=== PATIENT | female | born 1950 | race Caucasian/White ===

== ENCOUNTER 2016-09-26 11:04 | Inpatient (IN) | payer MEDICARE, BC ==
--- NOTE | 2016-09-26 11:37 | ER Document Report ---
ED Medical Screen (RME) - General Mode of Arrival: Ambulatory Information source: Patient TRAVEL OUTSIDE OF THE U.S. IN LAST 30 DAYS: No - HPI Patient complains to provider of: Dark stool Onset: Other - Last night Associated Symptoms: Other - see notes above <SACHA DELEON - Last Filed: 09/26/16 11:51> <EMANUELCHARO BUSH MELANIE - Last Filed: 09/26/16 12:47> - General Chief Complaint: Bloody Stools Stated Complaint: POSSIBLE BLOOD IN STOOL Time Seen by Provider: 09/26/16 11:36 Notes: 65-year-old female with history of cholecystectomy and gastric bypass surgery presents to the ED complaining of passing dark stool last night this morning. Patient reports that she had a GI bleed secondary to an ulcer or diverticulosis on July 11, 2016. Patient called her surgeon's office this morning and was told to come to the ED for evaluation. Patient denies lightheadedness or abdominal pain. Patient is currently taking Protonix. I have greeted and performed a rapid initial assessment of this patient. A comprehensive ED assessment and evaluation of the patient, analysis of test results and completion of the medical decision making process will be conducted by additional ED providers. (SACHA DELEON) - Related Data Allergies/Adverse Reactions: codeine with Tylenol Allergy (Uncoded 09/26/16 11:18) Past Medical History - General Information source: Patient - Social History Chew tobacco use (# tins/day): No Frequency of alcohol use: None Drug Abuse: None Family history: Reviewed & Not Pertinent Renal/ Medical History: Denies: Hx Peritoneal Dialysis Past Surgical History: Reports: Hx Abdominal Surgery - gastric bypass, Hx Cholecystectomy, Hx Gastric Bypass Surgery, Hx Orthopedic Surgery - knee, carlin hands <SACHA DELEON - Last Filed: 09/26/16 11:51> Review of Systems - Review of Systems Constitutional: No symptoms reported EENT: No symptoms reported Cardiovascular: No symptoms reported. denies: Lightheaded Respiratory: No symptoms reported Gastrointestinal: See HPI, Black stools. denies: Abdominal pain Genitourinary: No symptoms reported Female Genitourinary: No symptoms reported Musculoskeletal: No symptoms reported Skin: No symptoms reported Hematologic/Lymphatic: No symptoms reported Neurological/Psychological: No symptoms reported -: Yes All other systems reviewed and negative <SACHA DELEON - Last Filed: 09/26/16 11:51> Physical Exam - General General appearance: Alert In distress: None - HEENT Head: Normocephalic, Atraumatic Eyes: Normal Extraocular movements intact: Yes Pupils: PERRL - Respiratory Respiratory status: No respiratory distress - Abdominal Inspection: Normal <SACHA DELEON - Last Filed: 09/26/16 11:51> Course <SACHA DELEON - Last Filed: 09/26/16 11:51> - Laboratory Result Diagrams: 09/26/16 12:18 09/26/16 12:18 <CHARO ALCALA - Last Filed: 09/26/16 12:47> - Re-evaluation Re-evalutation: 09/26/16 12:46 I personally performed the services described in the documentation, reviewed and edited the documentation which was dictated to the scribe in my presence, and it accurately records my words and actions. (CHARO ALCALA) - Vital Signs Vital signs: Temp Pulse Resp BP Pulse Ox 98.6 F 94 16 115/62 99 09/26/16 12:33 09/26/16 12:33 09/26/16 12:33 09/26/16 12:33 09/26/16 12:33 - Laboratory Laboratory results interpreted by me: 09/26/16 09/26/16 11:46 12:18 RDW 15.3 H Ur Leukocyte Esterase SMALL H Urine Ascorbic Acid 40 H Scribe Documentation - Scribe Written by Scribe:: Sebas Valenzuela, 09/26/2016 [id number] acting as scribe for :: Kylie <SACHA DELEON - Last Filed: 09/26/16 11:51>
[2016-09-26 12:31] LABS: ABSOLUTE BASOPHILS # (AUTO) 0.1 10^3/uL (0.0-0.2); ABSOLUTE EOSINOPHILS # (AUTO) 0.1 10^3/uL (0.0-0.6); ABSOLUTE LYMPHOCYTES (AUTO) 2.5 10^3/uL (0.5-4.7); ABSOLUTE NEUT (AUTO) 6.7 10^3/uL (1.7-8.2); BASOPHILS % (AUTO) 0.5 % (0-2); EOSINOPHILS % (AUTO) 0.9 % (0-6); HEMATOCRIT 39.3 % (36.0-47.0); HEMOGLOBIN 12.8 g/dL (12.0-15.5); HGB HCT DIFFERENCE -0.9; LYMPHOCYTES % (AUTO) 24.3 % (13-45); MEAN CORPUSCULAR HEMOGLOBIN 27.9 pg (27.0-33.4); MEAN CORPUSCULAR HGB CONC 32.5 g/dL (32.0-36.0); MEAN CORPUSCULAR VOLUME 86 fl (80-97); MONOCYTES % (AUTO) 9.6 % (3-13); RED BLOOD COUNT 4.58 10^6/uL (3.72-5.28); RED CELL DISTRIBUTION WIDTH 15.3 % (11.5-14.0); SEGMENTED NEUTROPHILS % (AUTO) 64.7 % (42-78); WHITE BLOOD COUNT 10.4 10^3/uL (4.0-10.5)
[2016-09-26 12:37] LABS: APPEARANCE,URINE SLIGHTLY-CLOUDY; BILIRUBIN,URINE NEGATIVE (NEGATIVE); GLUCOSE, URINE NEGATIVE (NEGATIVE); KETONES,URINE NEGATIVE (NEGATIVE); LEUKOCYTE ESTERASE,URINE SMALL (NEGATIVE); NITRITE,URINE NEGATIVE (NEGATIVE); PROTEIN,URINE NEGATIVE (NEGATIVE); URINE SPECIFIC GRAVITY 1.018; UROBILINOGEN,URINE NEGATIVE mg/dL (<2.0)
[2016-09-26 12:53] LABS: ALANINE AMINOTRANSFERASE 27 U/L (9-52); ALBUMIN 4.4 g/dL (3.5-5.0); ALKALINE PHOSPHATASE 86 U/L (38-126); ANION GAP 12 (5-19); ASPARTATE AMINO TRANSFERASE 21 U/L (14-36); BILIRUBIN,DIRECT 0.2 mg/dL (0.0-0.4); BILIRUBIN,TOTAL 0.3 mg/dL (0.2-1.3); BLOOD UREA NITROGEN 32 mg/dL (7-20); CALCIUM 9.6 mg/dL (8.4-10.2); CARBON DIOXIDE 25 mmol/L (22-30); CHLORIDE 105 mmol/L (98-107); CREATININE RESULT 0.64 mg/dL (0.52-1.25); GLUCOSE 93 mg/dL (75-110); POTASSIUM 5.4 mmol/L (3.6-5.0); SODIUM 141.6 mmol/L (137-145)
--- NOTE | 2016-09-26 13:42 | ER Document Report ---
ED GI Bleed / Rectal Pain - General Mode of Arrival: Ambulatory TRAVEL OUTSIDE OF THE [place].S. IN LAST 30 DAYS: No - HPI Patient complains to provider of: Dark/tarry stools Onset: Other - last night and this morning Dark Stools: Black Associated symptoms: Other - see notes above <SACHA DELEON - Last Filed: 09/26/16 15:50> <CHARO ALCALA - Last Filed: 09/26/16 19:04> - General Chief Complaint: Bloody Stools Stated Complaint: POSSIBLE BLOOD IN STOOL Time Seen by Provider: 09/26/16 11:36 Notes: 65-year-old female with history of cholecystectomy and gastric bypass surgery presents to the ED complaining of passing dark stool last night this morning. Patient reports that she had a GI bleed secondary to an ulcer or diverticulosis on July 11, 2016. Patient called her surgeon's office this morning and was told to come to the ED for evaluation. Patient denies lightheadedness or abdominal pain. Patient is currently taking Protonix. (SACHA DELEON) - Related Data Allergies/Adverse Reactions: codeine with Tylenol Allergy (Uncoded 09/26/16 11:18) Past Medical History - General Information source: Patient - Social History Smoking Status: Never Smoker Chew tobacco use (# tins/day): No Frequency of alcohol use: None Drug Abuse: None Family History: Reviewed & Not Pertinent Patient has suicidal ideation: No Patient has homicidal ideation: No Renal/ Medical History: Denies: Hx Peritoneal Dialysis Past Surgical History: Reports: Hx Abdominal Surgery - gastric bypass, Hx Cholecystectomy, Hx Gastric Bypass Surgery, Hx Orthopedic Surgery - knee, carlin hands <SACHA DELEON - Last Filed: 09/26/16 15:50> Review of Systems - Review of Systems Constitutional: No symptoms reported EENT: No symptoms reported Cardiovascular: No symptoms reported. denies: Lightheaded Respiratory: No symptoms reported Gastrointestinal: See HPI, Black stools. denies: Abdominal pain Genitourinary: No symptoms reported Female Genitourinary: No symptoms reported Musculoskeletal: No symptoms reported Skin: No symptoms reported Hematologic/Lymphatic: No symptoms reported Neurological/Psychological: No symptoms reported -: Yes All other systems reviewed and negative <SACHA DELEON - Last Filed: 09/26/16 15:50> Physical Exam - General General appearance: Alert In distress: None - HEENT Head: Normocephalic, Atraumatic Eyes: Normal Extraocular movements intact: Yes Pupils: PERRL - Respiratory Respiratory status: No respiratory distress Breath sounds: Normal - Cardiovascular Rhythm: Regular Heart sounds: Normal auscultation - Abdominal Inspection: Normal Distension: No distension Tenderness: Nontender - Back Back: Normal - Extremities General upper extremity: Normal inspection, Normal ROM General lower extremity: Normal inspection, Normal ROM - Neurological Neuro grossly intact: Yes Cognition: Normal Orientation: AAOx4 Drewsey Coma Scale Eye Opening: Spontaneous Drewsey Coma Scale Verbal: Oriented Drewsey Coma Scale Motor: Obeys Commands Drewsey Coma Scale Total: 15 Speech: Normal - Psychological Associated symptoms: Normal affect, Normal mood - Skin Skin Temperature: Warm Skin Moisture: Dry Skin Color: Normal <SACHA DELEON - Last Filed: 09/26/16 15:50> Course - Laboratory Result Diagrams: 09/26/16 13:41 09/26/16 12:18 - Consults [facility] Time consulted: 14:49 Dr. Hernandez Time consulted: 15:33 <SACHA DELEON - Last Filed: 09/26/16 15:50> - Laboratory Result Diagrams: 09/26/16 13:41 09/26/16 12:18 <CHARO ALCALA - Last Filed: 09/26/16 19:04> - Re-evaluation Re-evalutation: 09/26/16 15:30 Patient updated on transfer status. (SACHA DELEON) 09/26/16 16:00 Patient is a 65-year-old female who comes in complaining of dark stool. Patient had an initial hemoglobin of 12.8. She did not receive any fluids and her hemoglobin dropped to 11.3 with an about an hour and a half. Patient has a history of GI bleed in June, massive transfusion and ICU admission up in [place]. Patient has a history of gastric bypass with question of ulcer near anastomosis site. Patient also with history of diverticular bleed. There is no gastroenterology on an the surgeon on does not do endoscopy or colonoscopy. Patient has a potential for decompensation overnight. She has been given Protonix bolus and started on a drip. The emergency department. She is also going to be kept n.p.o. and received fluid hydration through her IV. Patient was discussed with [facility] but they do not have any beds available. Patient was discussed with [facility] at family's request and she will be transferred there. She has been accepted by Dr. Hernandez and Laura. Patient denies any bright red blood. No bright red blood per rectum. No vomiting. No abdominal pain. 09/26/16 19:02 Patient is still awaiting a bed at [facility]. She is medically stable at this time. (CHARO ALCALA) - Vital Signs Vital signs: Temp Pulse Resp BP Pulse Ox 98.4 F 80 14 158/78 H 97 09/26/16 18:13 09/26/16 18:13 09/26/16 18:13 09/26/16 18:13 09/26/16 18:13 - Laboratory Laboratory results interpreted by me: 09/26/16 09/26/16 09/26/16 11:46 12:18 12:18 Hgb Hct RDW 15.3 H Potassium 5.4 H BUN 32 H Ur Leukocyte Esterase SMALL H Urine Ascorbic Acid 40 H 09/26/16 13:41 Hgb 11.3 L Hct 34.8 L RDW 14.7 H Potassium BUN Ur Leukocyte Esterase Urine Ascorbic Acid - Consults [facility] Transfer Line Reason for consultation: 09/26/16 14:49 Patient was discussed with [facility] Transfer Line (SACHA DELEON) Dr. Hernandez Reason for consultation: 09/26/16 15:33 Patient was discussed with Dr. Hernandez and agrees to admit the patient to Dr. Sanchez at [facility]. (SACHA DELEON) Discharge <SACHA DELEON - Last Filed: 09/26/16 15:50> <CHARO ALCALA - Last Filed: 09/26/16 19:04> - Discharge Clinical Impression: Gastrointestinal hemorrhage Qualifiers: GI bleed type/associated pathology: unspecified gastrointestinal hemorrhage type Qualified Code(s): K92.2 - Gastrointestinal hemorrhage, unspecified Condition: Stable Disposition: [facility] Scribe Attestation: 09/26/16 19:04 I personally performed the services described in the documentation, reviewed and edited the documentation which was dictated to the scribe in my presence, and it accurately records my words and actions. (CHARO ALCALA) Scribe Documentation - Scribe Written by Scribe:: Sebas Valenzuela, 09/26/2016 [id number] acting as scribe for :: Kylie <SACHA DELEON - Last Filed: 09/26/16 15:50>
[2016-09-26 13:58] LABS: HEMATOCRIT 34.8 % (36.0-47.0); HEMOGLOBIN 11.3 g/dL (12.0-15.5); HGB HCT DIFFERENCE -0.9; MEAN CORPUSCULAR HEMOGLOBIN 27.7 pg (27.0-33.4); MEAN CORPUSCULAR HGB CONC 32.6 g/dL (32.0-36.0); MEAN CORPUSCULAR VOLUME 85 fl (80-97); RED BLOOD COUNT 4.09 10^6/uL (3.72-5.28); RED CELL DISTRIBUTION WIDTH 14.7 % (11.5-14.0)
[2016-09-26] MEDS ORDERED: PANTOPRAZOLE SODIUM 40 MG VIAL IV ONE (14:25)
[2016-09-26] MEDS ORDERED: NORMAL SALINE 1000 ML 1,000 ML IV ONE (15:45)
[2016-09-26] MEDS: PANTOPRAZOLE SODIUM 40 MG VIAL IV PRN (16:12)
[2016-09-26 20:48] LABS: ABSOLUTE EOSINOPHILS # (AUTO) 0.1 10^3/uL (0.0-0.6); ABSOLUTE LYMPHOCYTES (AUTO) 3.6 10^3/uL (0.5-4.7); ABSOLUTE MONOCYTES (AUTO) 0.7 10^3/uL (0.1-1.4); ABSOLUTE NEUT (AUTO) 5.4 10^3/uL (1.7-8.2); BASOPHILS % (AUTO) 0.4 % (0-2); HEMATOCRIT 34.2 % (36.0-47.0); HEMOGLOBIN 11.2 g/dL (12.0-15.5); HGB HCT DIFFERENCE -0.6; LYMPHOCYTES % (AUTO) 36.4 % (13-45); MEAN CORPUSCULAR HGB CONC 32.7 g/dL (32.0-36.0); MEAN CORPUSCULAR VOLUME 86 fl (80-97); RED CELL DISTRIBUTION WIDTH 15.2 % (11.5-14.0); SEGMENTED NEUTROPHILS % (AUTO) 55.2 % (42-78); WHITE BLOOD COUNT 9.8 10^3/uL (4.0-10.5)
[2016-09-26] MEDS ORDERED: ACETAMINOPHEN 325 MG TABLET PO ONE (23:06)
[2016-09-27] MEDS: PANTOPRAZOLE SODIUM 40 MG VIAL IV PRN (02:11)
[2016-09-27 04:10] LABS: ABSOLUTE BASOPHILS # (AUTO) 0.1 10^3/uL (0.0-0.2); ABSOLUTE EOSINOPHILS # (AUTO) 0.1 10^3/uL (0.0-0.6); ABSOLUTE LYMPHOCYTES (AUTO) 3.1 10^3/uL (0.5-4.7); ABSOLUTE MONOCYTES (AUTO) 0.7 10^3/uL (0.1-1.4); ABSOLUTE NEUT (AUTO) 4.8 10^3/uL (1.7-8.2); BASOPHILS % (AUTO) 0.7 % (0-2); EOSINOPHILS % (AUTO) 1.6 % (0-6); HEMATOCRIT 32.7 % (36.0-47.0); HEMOGLOBIN 10.7 g/dL (12.0-15.5); HGB HCT DIFFERENCE -0.6; LYMPHOCYTES % (AUTO) 35.4 % (13-45); MEAN CORPUSCULAR HEMOGLOBIN 28.2 pg (27.0-33.4); MEAN CORPUSCULAR HGB CONC 32.8 g/dL (32.0-36.0); MEAN CORPUSCULAR VOLUME 86 fl (80-97); MONOCYTES % (AUTO) 7.8 % (3-13); RED CELL DISTRIBUTION WIDTH 15.1 % (11.5-14.0); SEGMENTED NEUTROPHILS % (AUTO) 54.5 % (42-78); WHITE BLOOD COUNT 8.8 10^3/uL (4.0-10.5)
[2016-09-27] MEDS ORDERED: DEXTROSE 5%-1/2 NORMAL SALINE 1,000 ML IV ONE (06:25)
--- NOTE | 2016-09-27 07:17 | ER Document Report ---
Doctor's Note Notes: 09/27/16 07:16 Patient has remained hemodynamically stable. She has no complaints this morning. I spoke with general surgery Dr. Viveros who agrees to perform endoscopy. Pt to be admitted to hospitalist service. Patient is very comfortable with this plan.
[2016-09-27] MEDS ORDERED: ONDANSETRON HCL INJ/PF 4 MG/2 ML SDV IV PRN (07:19)
[2016-09-27] MEDS ORDERED: ACETAMINOPHEN 325 MG TABLET PO PRN (07:19)
[2016-09-27] MEDS ORDERED: MORPHINE SULFATE 10 MG/ML INJ IV PRN (08:19)
--- NOTE | 2016-09-27 08:49 | PDOC CONSULTATION ---
Consultation Consult Date: 09/27/16 Consult reason:: GI bleed evaluation; absence of on-call gastroenterologic services. History of Present Illness Admission Date/PCP: 09/27/16 08:10 History of Present Illness: KASSY SANFORD is a 65 year old female presents to the emergency department via ground rescue complaining of several day history of weakness, dark tarry stools. The patient has a history of upper GI bleed July 2016[place], status post EGD with diagnosis of gastritis by her verbal report. She was treated with iron and proton pump inhibitors. She has been off the iron after her hemoglobin johnny from 10-14. She received no blood transfusions by her report. The patient came to the emergency department yesterday, and due to the absence of on-call GI services sat in the ER until today when the general surgeon on-call agreed to perform upper endoscopy on this patient. In the emergency department she has been hemodynamically stable. Patient is status post a gastric bypass Silvia-en-Y 2003 with substantial weight loss and then gain. She is uncertain if the endoscopy performed in July involved her Silvia limb. She does have a history of B12 and iron deficiency anemia. Past Surgical History Past Surgical History: Reports: Cholecystectomy, Gastric Bypass Surgery, Orthopedic Surgery - knee, carlin hands-carpal tunnel syndrome surgery, Other - Melanoma left arm with sentinel node biopsy, negative, [place], 5 years ag Social History Smoking Status: Never Smoker Hx Recreational Drug Use: No Hx Prescription Drug Abuse: No Family History Family History: Reviewed & Not Pertinent Parental Family History Reviewed: Yes Children Family History Reviewed: Yes Sibling(s) Family History Reviewed.: Yes Medication/Allergy Allergies/Adverse Reactions: codeine with Tylenol Allergy (Uncoded 09/26/16 11:18) Review of Systems Constitutional: PRESENT: as per HPI Eyes: ABSENT: visual disturbances Ears: ABSENT: hearing changes Cardiovascular: ABSENT: chest pain, dyspnea on exertion, edema, orthropnea, palpitations Respiratory: ABSENT: cough, hemoptysis Gastrointestinal: PRESENT: as per HPI Genitourinary: ABSENT: dysuria, hematuria Musculoskeletal: ABSENT: joint swelling Psychiatric: ABSENT: anxiety, depression, homidical ideation, suicidal ideation Physical Exam Vital Signs: Temp Pulse Resp BP Pulse Ox 98.4 F 80 17 153/64 H 99 09/26/16 18:13 09/26/16 18:13 09/27/16 06:01 09/27/16 06:00 09/27/16 06:01 General appearance: PRESENT: no acute distress Head exam: PRESENT: normocephalic Eye exam: PRESENT: EOMI Ear exam: PRESENT: normal external ear exam Neck exam: PRESENT: full ROM Respiratory exam: PRESENT: clear to auscultation carlin Cardiovascular exam: PRESENT: RRR Pulses: PRESENT: normal carotid pulses GI/Abdominal exam: PRESENT: other - Multiple midline scars vertically oriented consistent with previous surgery. Gentrourinary exam: PRESENT: other - Deferred Musculoskeletal exam: PRESENT: full ROM Neurological exam: PRESENT: alert, awake, oriented to person, oriented to place Psychiatric exam: PRESENT: appropriate affect Skin exam: PRESENT: other - Fair complexion; multiple scars consistent with previous surgery left arm left axilla Assessment & Plan - Diagnosis (1) GI bleed Qualifiers: GI bleed type/associated pathology: unspecified gastrointestinal hemorrhage type Qualified Code(s): K92.2 - Gastrointestinal hemorrhage, unspecified Is this a current diagnosis for this admission?: YesPlan: Patient has a recurrent GI bleed based on clinical history. Likely upper source. History of gastric bypass, with Silvia-en-Y reconstruction, consider marginal ulceration as the etiology. Plan: 1. Admit to hospitalist service, keep n.p.o. 2. The patient up for upper endoscopy in the endoscopy suite, conscious sedation. 3. Given patient's gastrojejunostomy, with Silvia-en-Y reconstruction, endoscopic inspection of her distal gastric remnant may only be performed using a pediatric colonoscope by a seasoned endoscopist. She may require referral for further evaluation. - Time Time Spent: 30 to 50 Minutes Critical Time spent with patient: Less than 15 minutes Anticipated discharge: Home
--- NOTE | 2016-09-27 09:51 | PDOC H&P ---
History of Present Illness Admission Date/PCP: 09/27/16 08:10 Patient complains of: Black tarry stools History of Present Illness: KASSY SANFORD is a 65 year old female presents to the emergency department via ground rescue complaining of several day history of weakness, and dark tarry stools. The patient has a history of upper GI bleed in July,. She resides in [facility], and is here visiting her family for a granddaughter 's high school graduation. She states she underwent an EGD and states they only found gastritis, no ulcers. She had a colonoscopy in 2014 with polyps removed. She has been treated with iron and proton pump inhibitors. She has been off the iron after her hemoglobin johnny from 10 to14. She received no blood transfusions by her report. The patient came to the emergency department yesterday, and due to the absence of on-call GI services sat in the ER until today when the general surgeon on-call agreed to perform upper endoscopy on this patient. In the emergency department she has been hemodynamically stable. She reports last stool was yesterday afternoon. Patient is status post a gastric bypass Silvia-en-Y 2003 with substantial weight loss and then gain. She is uncertain if the endoscopy performed in July involved her Silvia limb. She does have a history of B12 and iron deficiency anemia. Past Medical History Cardiac Medical History: Reports: Hypertension Pulmonary Medical History: Reports: None EENT Medical History: Reports: None Neurological Medical History: Reports: None Endocrine Medical History: Reports: None Renal/ Medical History: Reports: None GI Medical History: Reports: None Musculoskeltal Medical History: Reports: None Skin Medical History: Reports: None Psychiatric Medical History: Reports: Depression Traumatic Medical History: Reports: None Hematology: Reports: Anemia Infectious Medical History: Reports: None Past Surgical History Past Surgical History: Reports: Cholecystectomy, Gastric Bypass Surgery, Orthopedic Surgery - knee, carlin hands-carpal tunnel syndrome surgery, Other - Melanoma left arm with sentinel node biopsy, negative, [place], 5 years ag Social History Information Source: Patient Lives with: Spouse/Significant other Smoking Status: Never Smoker Frequency of Alcohol Use: Rare Hx Recreational Drug Use: No Hx Prescription Drug Abuse: No - Advance Directive Resuscitation Status: Full Code Surrogate healthcare decision maker:: , Alverto Sanford Family History Family History: Hypertension Parental Family History Reviewed: Yes Children Family History Reviewed: Yes Sibling(s) Family History Reviewed.: Yes Medication/Allergy Allergies/Adverse Reactions: codeine with Tylenol Allergy (Uncoded 09/26/16 11:18) Review of Systems Constitutional: PRESENT: fatigue, weakness Eyes: ABSENT: visual disturbances Ears: ABSENT: hearing changes Cardiovascular: ABSENT: chest pain, dyspnea on exertion, edema, orthropnea, palpitations Respiratory: ABSENT: cough, hemoptysis Gastrointestinal: PRESENT: melena Genitourinary: ABSENT: dysuria, hematuria Musculoskeletal: PRESENT: back pain Neurological: ABSENT: abnormal gait, abnormal speech, confusion, dizziness, focal weakness, syncope Psychiatric: PRESENT: depression Endocrine: ABSENT: cold intolerance, heat intolerance, polydipsia, polyuria Hematologic/Lymphatic: ABSENT: easy bleeding, easy bruising Physical Exam Vital Signs: Temp Pulse Resp BP Pulse Ox 98.3 F 80 16 149/68 H 98 09/27/16 08:44 09/26/16 18:13 09/27/16 08:01 09/27/16 08:00 09/27/16 08:01 General appearance: PRESENT: no acute distress, obese, well-developed, well- nourished Head exam: PRESENT: atraumatic, normocephalic Eye exam: PRESENT: conjunctiva pink, EOMI, PERRLA. ABSENT: scleral icterus Ear exam: PRESENT: normal external ear exam Mouth exam: PRESENT: moist, tongue midline Neck exam: ABSENT: carotid bruit, JVD, lymphadenopathy, thyromegaly Respiratory exam: PRESENT: clear to auscultation carlin. ABSENT: rales, rhonchi, wheezes Cardiovascular exam: PRESENT: RRR. ABSENT: diastolic murmur, rubs, systolic murmur Pulses: PRESENT: normal dorsalis pedis pul Vascular exam: PRESENT: normal capillary refill GI/Abdominal exam: PRESENT: normal bowel sounds, soft. ABSENT: distended, guarding, mass, organolmegaly, rebound, tenderness Rectal exam: PRESENT: deferred Extremities exam: PRESENT: full ROM. ABSENT: calf tenderness, clubbing, pedal edema Neurological exam: PRESENT: alert, awake, oriented to person, oriented to place , oriented to time, oriented to situation, CN II-XII grossly intact. ABSENT: motor sensory deficit Psychiatric exam: PRESENT: appropriate affect, normal mood. ABSENT: homicidal ideation, suicidal ideation Skin exam: PRESENT: dry, intact, warm. ABSENT: cyanosis, rash Assessment & Plan - Diagnosis (1) GI bleed Qualifiers: GI bleed type/associated pathology: unspecified gastrointestinal hemorrhage type Qualified Code(s): K92.2 - Gastrointestinal hemorrhage, unspecified Is this a current diagnosis for this admission?: YesPlan: NPO. EGD today by Dr Viveros. Protonix IV (2) Acute blood loss anemia Is this a current diagnosis for this admission?: YesPlan: Hgb dropped 12.4 to 10.2. No active bleeding presently. Will restart iron and check labs only if recurrent bleeding. Await EGD results (3) Essential (primary) hypertension Is this a current diagnosis for this admission?: YesPlan: Continue home medication. She is presently normotensive (4) History of gastric bypass Is this a current diagnosis for this admission?: Yes (5) Depression Qualifiers: Depression Type: unspecified Qualified Code(s): F32.9 - Major depressive disorder, single episode, unspecified Is this a current diagnosis for this admission?: YesPlan: Continue Zoloft (6) Obesity (BMI 35.0-39.9 without comorbidity) Is this a current diagnosis for this admission?: YesPlan: Counseled - Time Time Spent: 50 to 70 Minutes Critical Time spent with patient: 25-34 minutes Medications reviewed and adjusted accordingly: Yes Anticipated discharge: Home
[2016-09-27 11:08] LABS: PROTHROMBIN TIME 14.3 SEC (11.4-15.4)
[2016-09-27 11:09] LABS: PARTIAL THROMBOPLASTIN TIME 29.7 SEC (23.5-35.8)
[2016-09-27] MEDS ORDERED: GLYCOPYRROLATE INJ 0.4 MG/2 ML VIAL ONE (13:26)
[2016-09-27] MEDS ORDERED: ONDANSETRON HCL INJ/PF 4 MG/2 ML SDV ONE (13:26)
[2016-09-27] MEDS ORDERED: EPINEPHRINE INJ 1 MG/10 ML DISP.SYRIN ONE (13:27)
[2016-09-27] MEDS ORDERED: GLUCAGON,HUMAN RECOMB 1 MG INJ ONE (13:27)
[2016-09-27] MEDS ORDERED: NALOXONE HCL INJ/PF 0.4 MG/1 ML SDV ONE (13:27)
[2016-09-27] MEDS ORDERED: FLUMAZENIL INJ 0.5 MG/5 ML VIAL IV ONE (13:27)
[2016-09-27] MEDS ORDERED: FENTANYL CITRATE INJ/PF 100 MCG/2 ML AMPUL ONE (13:27)
[2016-09-27] MEDS: MIDAZOLAM 2 MG/2 ML INJ ONE ×2 (13:50→13:55)
--- NOTE | 2016-09-27 16:19 | Operative Report ---
Operative Report DATE OF SURGERY: 09/27/16 PREOPERATIVE DIAGNOSIS: 1. History of GI bleed. 2. History of gastric bypass procedure with Silvia-en-Y reconstruction. 3. History of anemia POSTOPERATIVE DIAGNOSIS: Same with no upper endoscopic evidence of bleeding or clot OPERATION: [id number] with photodocumentation SURGEON: ISABEL DELAROSA ANESTHESIA: Moderate Sedation TISSUE REMOVED OR ALTERED: None COMPLICATIONS: None ESTIMATED BLOOD LOSS: None INTRAOPERATIVE FINDINGS: See below PROCEDURE: The patient was taken on the floor to the endoscopy suite where IV sedation was initiated. She was placed in the semirecumbent position, or mouthpiece inserted. Surgical plan surgical timeout conducted The flexible upper endoscope was advanced to the hypopharynx, down the esophagus and into the proximal stomach. The patient is status post gastric bypass with gastrojejunostomy. The gastric pouch was approximately 10 cm x 10 cm x 10 cm in size. To the medial side of the pouch was the dominant gastrojejunostomy. This was entered with the scope and the scope advanced all the way to 80 cm into the jejunum. There is no evidence of overt bleeding, stricture, polyp or clot. The scope was brought back through the Silvia limb to the gastric pouch. Just lateral to the gastrojejunostomy was a small opening approximately 1/2 cm in diameter. This is adjacent to a heaped up. Granulation tissue at the site of her previous operative sutures. Photos were taken. I was able to insinuate the scope into the second aperture and it essentially was a blind-ending pouch. There was a small dimple at the distal end of this pouch which was approximately 20 cm in length. Photos were taken. It resembled a defunctionalized limb of small intestine. There was no retained gastric contents here bleeding clot or anything else other than mucosa. Scope was brought back through into the gastric pouch. We took pictures of the described anatomy and then withdrew the scope from the patient's esophagus and oropharynx. Patient tolerated the procedure well. Recommendations made for continued medical therapy, B12 and iron as indicated.
[2016-09-27] MEDS: PANTOPRAZOLE SODIUM 40 MG VIAL IV SCH (21:41)
[2016-09-28 06:33] LABS: ABSOLUTE EOSINOPHILS # (AUTO) 0.2 10^3/uL (0.0-0.6); ABSOLUTE LYMPHOCYTES (AUTO) 2.1 10^3/uL (0.5-4.7); ABSOLUTE MONOCYTES (AUTO) 0.5 10^3/uL (0.1-1.4); BASOPHILS % (AUTO) 0.7 % (0-2); EOSINOPHILS % (AUTO) 4.3 % (0-6); HEMATOCRIT 30.1 % (36.0-47.0); HEMOGLOBIN 9.9 g/dL (12.0-15.5); HGB HCT DIFFERENCE -0.4; MEAN CORPUSCULAR HEMOGLOBIN 28.2 pg (27.0-33.4); MEAN CORPUSCULAR HGB CONC 32.9 g/dL (32.0-36.0); MEAN CORPUSCULAR VOLUME 86 fl (80-97); MONOCYTES % (AUTO) 7.9 % (3-13); RED BLOOD COUNT 3.51 10^6/uL (3.72-5.28); RED CELL DISTRIBUTION WIDTH 15.2 % (11.5-14.0); SEGMENTED NEUTROPHILS % (AUTO) 51.1 % (42-78); WHITE BLOOD COUNT 5.8 10^3/uL (4.0-10.5)
[2016-09-28 06:38] LABS: ANION GAP 10 (5-19); BLOOD UREA NITROGEN 12 mg/dL (7-20); CALCIUM 8.9 mg/dL (8.4-10.2); CARBON DIOXIDE 24 mmol/L (22-30); CHLORIDE 110 mmol/L (98-107); CREATININE RESULT 0.59 mg/dL (0.52-1.25); GLUCOSE 98 mg/dL (75-110); POTASSIUM 4.4 mmol/L (3.6-5.0); SODIUM 143.6 mmol/L (137-145)
[2016-09-28] MEDS ORDERED: CETIRIZINE 10 MG TABLET PO SCH (10:00)
[2016-09-28] MEDS ORDERED: LISINOPRIL 10 MG TABLET PO SCH (10:00)
[2016-09-28] MEDS ORDERED: SERTRALINE HCL 50 MG TABLET PO SCH (10:00)
[2016-09-28] MEDS ORDERED: MULTIVITAMIN TABLET PO SCH (10:00)
[2016-09-28] MEDS ORDERED: CYANOCOBALAMIN (VITAMIN B-12) 1,000 MCG TABLET PO SCH (10:00)
[2016-09-28] MEDS: PANTOPRAZOLE SODIUM 40 MG VIAL IV SCH (10:47)
[2016-09-28 11:39] VITALS: BP 158/63
--- NOTE | 2016-09-28 11:40 | PDOC DISCHARGE SUMMARY ---
General - Admit/Disc Date/PCP Admission Date/Primary Care Provider: 09/27/16 07:19 Discharge Date: 09/28/16 - Discharge Diagnosis (1) GI bleed Is this a current diagnosis for this admission?: YesSummary: Resolved. Hgb 9.9. Did not require transfusion. EGD by Dr Viveros showed no active bleeding. Will increase protonix to bid for the next week. Resume iron supplement and follow up with gastroenterology upon her return to [place]. (2) Acute blood loss anemia Is this a current diagnosis for this admission?: YesSummary: Stabilized. Hgb 12.4 on admission down to 9.9 today (3) Essential (primary) hypertension Is this a current diagnosis for this admission?: YesSummary: Normotensive continue home medication (4) History of gastric bypass Is this a current diagnosis for this admission?: Yes (5) Depression Is this a current diagnosis for this admission?: YesSummary: Continue Zoloft (6) Obesity (BMI 35.0-39.9 without comorbidity) Is this a current diagnosis for this admission?: YesSummary: Counseled - Additional Information Resuscitation Status: Full Code Discharge Diet: Regular Discharge Activity: Activity As Tolerated, Balance Activity w/Rest Home Medications: Cetirizine HCl [Zyrtec 10 mg Tablet] 10 mg PO DAILY 09/27/16 Cyanocobalamin (Vitamin B-12) [Vitamin B-12 1000 mcg Tablet] 1,000 mcg PO DAILY 09/27/16 Lisinopril [Prinivil 10 mg Tablet] 10 mg PO DAILY 09/27/16 Multivitamin [Tab-A-Sahy (Multiple Vitamin) Tablet] 1 tab PO DAILY 09/27/16 Rosuvastatin Calcium [Crestor 5 mg Tablet] 5 mg PO DAILY 09/27/16 Sertraline HCl [Zoloft] 150 mg PO DAILY 09/27/16 Pantoprazole Sodium [Protonix] 40 mg PO BID #40 tablet. 09/28/16 History of Present Illness Patient complains of: Black tarry stools History of Present Illness: KASSY SANFORD is a 65 year old female presents to the emergency department via ground rescue complaining of several day history of weakness, and dark tarry stools. The patient has a history of upper GI bleed in July,. She resides in [facility], and is here visiting her family for a granddaughter 's high school graduation. She states she underwent an EGD and states they only found gastritis, no ulcers. She had a colonoscopy in 2014 with polyps removed. She has been treated with iron and proton pump inhibitors. She has been off the iron after her hemoglobin johnny from 10 to14. She received no blood transfusions by her report. The patient came to the emergency department yesterday, and due to the absence of on-call GI services sat in the ER until today when the general surgeon on-call agreed to perform upper endoscopy on this patient. In the emergency department she has been hemodynamically stable. She reports last stool was yesterday afternoon. Patient is status post a gastric bypass [id number] with substantial weight loss and then gain. She is uncertain if the endoscopy performed in July involved her Silvia limb. She does have a history of B12 and iron deficiency anemia. Hospital Course Hospital Course: Patient was admitted to the hospitalist service on telemetry. Dr Viveros, was consulted to perform an EGD. Patient was agreeable to procedure. EGD revealed no active bleeding. The patient had no further melena. She remained stable overnight. She was given clear liquids with no nausea or abdominal pain. This morning she feels well. She is hungry. She will be discharged home and encouraged to follow up with GI upon her return to [place]. Physical Exam Vital Signs: Temp Pulse Resp BP Pulse Ox 98.4 F 66 18 147/55 H 98 09/28/16 07:25 09/28/16 07:25 09/28/16 07:25 09/28/16 07:25 09/28/16 07:25 Intake & Output 09/27/16 09/28/16 09/29/16 06:59 06:59 06:59 Intake Total 540 Balance 540 Weight 95.2 kg General appearance: PRESENT: no acute distress, obese, well-developed, well- nourished Head exam: PRESENT: atraumatic, normocephalic Eye exam: PRESENT: conjunctiva pink, EOMI, PERRLA. ABSENT: scleral icterus Ear exam: PRESENT: normal external ear exam Mouth exam: PRESENT: moist, tongue midline Neck exam: ABSENT: carotid bruit, JVD, lymphadenopathy, thyromegaly Respiratory exam: PRESENT: clear to auscultation carlin. ABSENT: rales, rhonchi, wheezes Cardiovascular exam: PRESENT: RRR. ABSENT: diastolic murmur, rubs, systolic murmur Pulses: PRESENT: normal dorsalis pedis pul Vascular exam: PRESENT: normal capillary refill GI/Abdominal exam: PRESENT: normal bowel sounds, soft. ABSENT: distended, guarding, mass, organolmegaly, rebound, tenderness Rectal exam: PRESENT: deferred Extremities exam: PRESENT: full ROM. ABSENT: calf tenderness, clubbing, pedal edema Neurological exam: PRESENT: alert, awake, oriented to person, oriented to place , oriented to time, oriented to situation, CN II-XII grossly intact. ABSENT: motor sensory deficit Psychiatric exam: PRESENT: appropriate affect, normal mood. ABSENT: homicidal ideation, suicidal ideation Skin exam: PRESENT: dry, intact, warm. ABSENT: cyanosis, rash Results Laboratory Results: 09/28/16 06:13 09/28/16 06:13 09/28/16 09/28/16 06:13 06:13 WBC 5.8 RBC 3.51 L Hgb 9.9 L Hct 30.1 L MCV 86 MCH 28.2 MCHC 32.9 RDW 15.2 H Plt Count 230 Seg Neutrophils % 51.1 Lymphocytes % 36.0 Monocytes % 7.9 Eosinophils % 4.3 Basophils % 0.7 Absolute Neutrophils 3.0 Absolute Lymphocytes 2.1 Absolute Monocytes 0.5 Absolute Eosinophils 0.2 Absolute Basophils 0.0 Sodium 143.6 Potassium 4.4 Chloride 110 H Carbon Dioxide 24 Anion Gap 10 BUN 12 Creatinine 0.59 Est GFR ( Amer) > 60 Est GFR (Non-Af Amer) > 60 Glucose 98 Calcium 8.9 Qualifiers [place] BEING DISCHARGED WITH ANY OF THE FOLLOWING DIAGNOSIS?: No Plan Discharge Plan: Home with family Time Spent: Less than 30 Minutes
== END 2016-09-28 11:41 | disposition home or self-care (01) | DRG 378 ==
LOC: ER 11:04 → EH 09-27 07:19 → UNDOADMIN 09-27 08:10 → EH 09-27 09:34 → 4S 09-27 09:34
PROC: 0DJ08ZZ Inspection of Upper Intestinal Tract, Via Natural or Artificial Opening Endoscopic (ICD-10-PCS; principal; 2016-09-27 13:30)
DX: K92.2 Gastrointestinal hemorrhage, unspecified (principal); D62 Acute posthemorrhagic anemia; I10 Essential (primary) hypertension; F32.9 Major depressive disorder, single episode, unspecified; Z98.84 Bariatric surgery status; E66.9 Obesity, unspecified; Z68.39 Body mass index [BMI] 39.0-39.9, adult; Z79.899 Other long term (current) drug therapy; Z90.49 Acquired absence of other specified parts of digestive tract; Z88.8 Allergy status to other drugs, medicaments and biological substances
CPT/HCPCS: 36415; 43235; 80048; 80053; 81001; 82272; 85025; 85027; 85610; 85730; 86850; 86900; 86901; 96365; 96366; 96376; 99285; J0171; J1610; J2250; J2270; J2310; J2405; J3010; J3490; J7030; S0164